=== PATIENT | male | born 1960 | race Caucasian/White ===

== ENCOUNTER 2023-07-16 14:11 | Emergency (ER) | payer OTHER, SELFPAY ==
[2023-07-16 14:18] VITALS: BP 142/90
--- NOTE | 2023-07-16 15:00 | ED.GENMED ---
History of Present Illness
General
Chief Complaint: Back Pain
Time Seen by Provider: 07/16/23 15:00
Travel History
Have you had any contact with someone who has COVID-19?: No
Do you have any symptoms of coronavirus? Fever > 100 degrees, chills, cough, shortness of breath, sore throat, loss of taste or smell, muscle aches, or headache?: No
History of Present Illness
History of Present Illness:
HPI: Patient presents with low back pain without injury. He thinks that he may have twisted suddenly 3 nights ago when this happened. Tramadol has not helped much (took his 's). He noticed some 'frothy' urine but no urinary hesitancy. No
fevers. He question the possibility of biliary disease however he has no right upper quadrant tenderness and no right upper quadrant pain.
EXAM:
GENERAL: Well appearing in mild distress and prefers to stand
HEENT: Moist oral mucosa
ABDOMEN: Soft with no peritoneal signs, no tenderness
NEUROLOGIC: Excellent strength all extremities, no coordination deficits
PSYCHIATRIC: Appropriate mental status, normal insight and judgement
BACK: There is no midline L-spine tenderness, negative straight leg raise, excellent strength in an L5 and S1 distribution
EXTREMITIES: Nontender, no edema, moves all extremities equally
SKIN: No rash, no lesions
TIME OF INITIAL ENCOUNTER: 3:05 PM
NUMBER AND COMPLEXITY OF PROBLEMS ADDRESSED AT THE ENCOUNTER
� Chronic conditions affecting care: Denies past medical history
� Acute Exacerbation and/or Progression of Chronic Illness: This is an acute problem
� Differential Diagnosis includes: Lumbar muscle spasm, ureteral stone less likely, AAA very unlikely
AMOUNT AND/OR COMPLEXITY OF DATA TO BE REVIEWED AND ANALYZED
� I performed an independent evaluation of and my interpretation is:
EKG:
CT: I personally reviewed CT imaging and see no evidence for ureteral stone
X-rays:
Laboratory Studies: Urinalysis negative for blood and infection
Other:
� Review of other/old records: I look for old records but there is no old records or results for review
� Clinical information was obtained by an independent historian: I spoke to the at bedside
� Prescriptions/Medications Considered but not given: Initially held off on steroids at the patient has no radicular symptoms/negative straight leg raise.
� Further testing considered but not performed:
RISK OF COMPLICATIONS AND/OR MORBIDITY OR MORTALITY OF PATIENT MANAGEMENT
� Social determinants of health affecting care: Lives at home with
� Discussion with other providers:
� Escalation of care including admission/observation vs risk of discharge considered: Will try dose of IM Toradol. The patient states that NSAIDs have not helped orally when taken earlier in the week. Given his age, CT imaging
is obtained. CT imaging reviewed with patient. Given some abnormalities on CT imaging, I recommended that he follows up with Ortho. Will try Flexeril prescription. He appears fairly comfortable at time of discharge.
Phy Exam
Physical Exam
Physical Exam:
See HPI
Course
Orders/Labs/Results
Orders:
Orders
07/16/23 15:11
CT Abd/pel Without Iv Or Oral Urgent
Comment:
Reason For Exam: severe R flank pain
Ketorolac [Toradol] 30 mg IM NOW STA
07/16/23 15:54
Urinalysis Reflex To Culture Urgent
Date Specimen was Collected: 07/16/23
Time Specimen was Collected: 15:23
07/16/23 17:24
Cyclobenzaprine HCl [Flexeril] 10 mg PO NOW STA
Vital Signs
Initial and Last Documented VS:
Initial Vital Signs
Temp Pulse Resp BP Pulse Ox
97.0 F 65 18 142/90 96
07/16/23 14:18 07/16/23 14:18 07/16/23 14:18 07/16/23 14:18 07/16/23 14:18
Last Documented Vital Signs
Temp Pulse Resp BP Pulse Ox
97.0 F 55 18 136/75 99
07/16/23 14:18 07/16/23 18:10 07/16/23 18:10 07/16/23 18:10 07/16/23 18:10
*Critical Care Note
Total Time (30-74mins, 75-104mins- exclusive of procedures): Not Applicable
ED Attending Note
-
Portions of this chart may have been created with voice recognition software.� Occasional wrong word or��sound alike� substitutions may have occurred due to the inherent limitations of voice recognition software.
Discharge Plan
Departure
Patient Disposition: Home (Routine Discharge)
Date of Disposition: 07/16/23
Time of Disposition: 17:59
Patient with high blood pressure during this ER visit?: Yes
Discharge Problem:
Low back pain
Instructions: Low Back Pain (DC)
Prescriptions:
New
cyclobenzaprine 10 mg tablet
10 mg PO TID PRN (Reason: pain) Qty: 20 0RF
Referrals:
Sarbjit Burrell DO [Family Provider] -
Donal Rico MD [Active] - Follow up in 2-3 days
Activity Restrictions/Additional Instructions:
Please follow-up your primary care doctor. I recommend 3-4 [id number] ibuprofen (Motrin) every 8 hours with food for a few days. Return here if worse. I also sent a prescription for Flexeril to your pharmacy. This can cause sedation so I
recommend no driving around the time you take Flexeril. No evidence for urinary tract calculi.
The appendix appears normal.
Colonic diverticula with no CT evidence for diverticulitis.
Moderate to severe changes of degenerative disc disease from L2-3 through L5-S1 with vacuum disc phenomenon from L3-4 through L5-S1. Posterior marginal spurring of the posterior disc spaces with prominent Schmorl's nodes involving the endplates of
L2-3 and L3-4. No evidence for spondylolisthesis or spondylolysis. Mild to moderate bilateral lower lumbar facet degenerative change, right greater than left. There is bilateral foraminal narrowing from L3-4 through L5-S1 bilaterally, which appears
slightly greater on the right compared to the left.
Small foci of sclerosis involving the superior femoral heads bilaterally, compatible with small foci of avascular necrosis, with no evidence for femoral head collapse.
Interventions
Interventions:
*Risk Screen - Suicide Last Done: 07/16/23 14:18
*General Assessment Last Done: 07/16/23 15:09
*Neglect/Abuse Screening Last Done: 07/16/23 14:18
ED- Fall Risk Assessment Last Done: 07/16/23 15:09
*ED COVID-19 Vaccine History Last Done: 07/16/23 14:18
*Nursing Disposition Last Done: 07/16/23 18:10
ED-Musculoskeletal Assessment Last Done: 07/16/23 15:08
Discharge Date and Time
Discharge Date/Time: 07/16/23 18:10
Print Language: BRITISH
[2023-07-16] MEDS: TORADOL 30 MG IM (15:18)
[2023-07-16 16:21] LABS: Urine Albumin Negative (Neg - Trace); Urine Bilirubin Negative (Negative); Urine Character Clear (Clear); Urine Color Yellow; Urine Glucose Negative (Negative); Urine Ketone Negative (Negative); Urine Leukocyte Negative (Negative); Urine Nitrite Negative (Negative); Urine Occult Blood Negative (Negative); Urine Urobilinogen Negative (Neg - 1+)
[2023-07-16] MEDS: FLEXERIL 10 MG PO (17:28)
[2023-07-16 18:10] VITALS: BP 136/75
== END 2023-07-16 18:10 | disposition home or self-care (01) ==
LOC: EMR 14:11
PROVIDERS: EMERGENCY PHYSICIAN Emergency Medicine; FAMILY PHYSICIAN Family Medicine
DX: M54.50 Low back pain, unspecified (principal); R03.0 Elevated blood-pressure reading, without diagnosis of hypertension; Z88.0 Allergy status to penicillin; Z88.8 Allergy status to other drugs, medicaments and biological substances
CPT/HCPCS: 99284; 96372; 74176; 81003